=== PATIENT | male | born 1980 | race Caucasian/White ===

== ENCOUNTER 2024-08-29 12:33 | Emergency (ER) | payer MEDICAID ==
[2024-08-29] MEDS: Lidocaine/Epineph/Tetracaine 3 ML Syringe TOP ONE (12:50)
[2024-08-29] MEDS: Ondansetron 4 MG Tab.DIS PO ONE (13:57)
== END 2024-08-29 14:24 | disposition home or self-care (01) ==
LOC: FB.ED 12:33
DX: S61.211A Laceration without foreign body of left index finger without damage to nail, initial encounter (principal); I10 Essential (primary) hypertension; E78.00 Pure hypercholesterolemia, unspecified; E11.9 Type 2 diabetes mellitus without complications; W26.8XXA Contact with other sharp object(s), not elsewhere classified, initial encounter; Y93.89 Activity, other specified; Y99.0 Civilian activity done for income or pay
CPT/HCPCS: 12002; 99283; A9270; Q0162